=== PATIENT | female | born 1975 | race Caucasian/White ===

== ENCOUNTER 2016-04-08 18:21 | Emergency (ER) | payer MEDICARE ==
[2016-04-08 18:21] VITALS: BMI 35.9
[2016-04-08 19:20] VITALS: TEMP 98
[2016-04-08] MEDS ORDERED: ALBUTEROL 6.7 GM MDI INH ONE (20:12)
--- NOTE | 2016-04-08 20:15 | EDPRACDOC ---
- General Information Chief Complaint: Flu-Like Symptoms Stated Complaint: SORE THROAT; COUGH Time Seen by Provider: 04/08/16 20:12 Information Source: Patient Mode Of Arrival: Car Home Medications: Home Medications Vits W-Ca,Fe,FA(<1Mg) [] 1 tab PO DAILY 03/31/13 Levothyroxine Sodium [Synthroid] 50 mcg PO DAILY 11/09/13 Glycopyrrolate [Robinul Forte] 2 mg PO .2 TO 3 TIMES DAILY 12/28/13 Cephalexin Monohydrate [Keflex] 500 mg PO Q8H #30 cap 01/05/14 Ibuprofen Tablet [Motrin] 800 mg PO Q6 PRN #30 tablet 01/05/14 Oxycodone Immediate Release [Oxy-Ir] 5 mg PO Q4H PRN #20 tab 01/05/14 Probiotic Blend [Rayne Q] 1 tab PO BIDLS #60 tablet 01/05/14 Trazodone HCl [Desyrel] 100 mg PO HS #30 tablet 01/05/14 Pantoprazole Sodium [Protonix] 40 mg PO DAILY #30 tab 04/08/16 Prednisone [Sterapred DS 10 mg/12 day pack] 48 tab PO DIR #1 pack 04/08/16 Promethazine Dextromethorphan [Phenergan DM] 5 ml PO Q4H PRN #120 ml 04/08/16 Allergies/Adverse Reactions: Allergies Allergy/AdvReac Type Severity Reaction Status Date / Time No Known Allergies Allergy Verified 12/28/13 19:03 - History of Present Illness Symptoms Started: 03/13/2016 HPI: PT C/O COUGH CONGESTION SOB WORSE WHEN LAYING DOWN AT NIGHT. SHE C/O SORETHROAT STATES HER SYMPTOMS HAVE BEEN GOING ON FOR APPROX 1 MONTH AND HAS BEEN ON AUGMENTIN AND AVELOX AND 1 ROUND OF PREDNISONE AND STATES HER SYMPTOMS WOULD GET LITTLE BETTER FOR 1-2 DAYS BUT THEN WOULD COME BACK. Symptoms: Reports: Cough, Nasal Symptoms, Sore Throat Recent Medications: Reports: Antibiotics, Steroids Relevant History Of: Reports: None Shortness of Breath: Mild Cough Frequency: Intermittent Cough Description: Reports: Productive, Congested (GREEN SPUTUM) Ear Symptoms: Reports: None Associated Signs and Symptoms: Reports: Cough, Nasal Symptoms, Sore Throat, Other (LOSS OF VOICE INTERMITTENTLY) ED Past Medical History - History Reviewed Yes Nurses notes reviewed and agree except as marked Travel Outside of [place] in the Last 3 Months?: No - Patient Medical History GI/ History: Reports: Urinary Tract Infection Musculoskeletal History: Denies: Other Psychological History: Denies: Depression, Substance Use Disorder Systemic History: Reports: Anemia, Hypothyroidism Surgical History: Reports: Other (multiple orth surgeries) - Family Medical History Reports: Cancer (Mother - ovarian, maternal Grandmother - breast) - Social Medical History Smoking Status: Never smoker Social History: Denies: Substance Use Disorder ETOH: None Substance Abuse: None Lives With: Spouse Lives In: Home EDM Review of Systems - Review of Systems ROS Negative Except as Marked: Yes All systems reviewed and were negative except as marked Constitutional: Fatigue. negative: Chills, Fever, Loss of Appetite, Weakness Eyes: No Symptoms Reported. negative: Redness, Blurred Vision, Double Vision, Discharge, Pain, Light Sensitive, Photophobia Ears: No Symptoms Reported. negative: Pain, Hearing Loss, Drainage, Ear Pulling Throat: Pain. negative: Swelling Nose: Congestion. negative: Abrasion, Bleeding, Discharge, Deformity, Ecchymosis, Injection, Laceration, Swelling, Tender Mouth: No Symptoms Reported. negative: Pain, Drooling Respiratory: Cough, Shortness of Breath. negative: Barky Cough, Brassy Cough, Hemoptysis, Wheezing Cardiovascular: No Symptoms Reported. negative: Chest Pain, Palpitations, Syncope, Edema, Orthopnea, PND, Skin Mottling, Cyanosis Gastrointestinal: No Symptoms Reported. negative: Pain, Constipation, Nausea, Vomiting, Diarrhea, Melena, Formula Intolerance Genitourinary: No Symptoms Reported. negative: Dysuria, Hematuria, Frequency, Discharge, Bleeding, Testicular Pain, Neurological: No Symptoms Reported. negative: Headache, Dizziness, Seizure, Numbness, Weakness, Speech Difficulty, Gait Difficulty Musculoskeletal: No Symptoms Reported. negative: Neck, Chestwall, Ribs, Back, Shoulder, Arm, Elbow, Forearm, Wrist, Hand, Pelvis, Hip, Femur, Knee, Leg, Ankle , Foot Integumentary: No Symptoms Reported. negative: Itching, Rash, Bruising, Wound Allergic/Immunologic: No Symptoms Reported. negative: Hives, Itching Hematologic: No Symptoms Reported. negative: Lymphadenopathy, Easy Bruising, Easy Bleeding Endocrine: No Symptoms Reported. negative: Weight Gain, Weight Loss Psychiatric: No Symptoms Reported. negative: Anxiety, Depression, Hallucinations, Insomnia, Suicidal - Physical Exam Constitutional: No apparent distress, Alert (Awake) Oriented to: Time, Person, Place Last recorded Vital Signs: Last Vital Signs Temp 98 F 04/08/16 19:19 Pulse 126 H 04/08/16 19:19 Resp 20 04/08/16 19:19 BP 174/104 H 04/08/16 19:19 Pulse Ox 97 04/08/16 19:19 Oxygen Pulse Oxygen Saturation 97 O2 Device Room Air Oxygen Flow Rate Fraction of Inspired Oxygen ( FIO2) - HEENT Head: Normal ( normocephalic) Eye Exam: Normal (PERRL, EOMI, Sclera white) Oropharynx: Red (MILD), Other (HOARSENESS) Tympanic Membrane: Normal ENT EAC: Normal TMJ: Normal Nose: Congestion, Swelling (REDNESS OF TURBINATES) Neck: Normal (FROM, trachea at midline) - Respiratory/Cardiovascular Respiratory: Other (COARSE BREATH SOUNDS) Cardiovascular: Normal (RRR without murmur, gallop or rub) - GI Auscultation: Normal (NABS) Palpation: Normal (Soft,No rebound or guarding, non distended) Tenderness: Non tender Stover's Sign: Negative - Musculoskeletal Back: Normal (Non-Tender) Extremities: Normal (Normal tone, Pulses 2+ No cyanosis or edema, FROM) - Integumentary Skin: Normal, Warm, Dry Lymphatics: Normal (no adenopathy) - Neurologic Memory Impaired: Normal Motor Function: Normal (Normal tone, Pulses 2+ No cyanosis or edema, FROM) Cranial Nerve: Normal (CN II-X11 intact sensation, strength 5/5) Cerebellar: Normal Mood Description: Normal Perception: Normal - Differential Diagnosis Bronchitis, Pneumonia, Viral, Other (LARYNGITIS) - Diagnostic Imaging CXR Image interpreted by: Radiologist IMPRESSION: Stable from prior. No evidence of acute cardiopulmonary disease. Decision Time to Discharge: 21:43 - Departure Disposition: Home Condition: Stable Final Diagnosis: Laryngitis Rhinitis Qualifiers: Rhinitis type: unspecified Qualified Code(s): J31.0 - Chronic rhinitis Instructions: Laryngitis (ED) Education/Counseling Given To: Patient Education/Counseling Given Regarding: Diagnosis, Treatment, Prognosis, Follow Up Referrals: Lauren Queen MD [Primary Care Provider] - One Week Lisandro Redding MD [Staff Physician] - One Week Prescriptions: Pantoprazole Sodium [Protonix] 40 mg PO DAILY #30 tab Prednisone [Sterapred DS 10 mg/12 day pack] 48 tab PO DIR #1 pack Promethazine Dextromethorphan [Phenergan DM] 5 ml PO Q4H PRN #120 ml PRN Reason: Cough
--- NOTE | 2016-04-08 20:29 | DIRPT ---
CLINICAL DATA: Cough and congestion. Shortness of breath EXAM: CHEST 2 VIEW COMPARISON: 07/09/2011 FINDINGS: Normal heart size and mediastinal contours. Stable appearance of prominent right infrahilar lung markings without lateral imaging correlate. There is no edema, consolidation, effusion, or pneumothorax. Incidental fused anterior right first and second ribs. IMPRESSION: Stable from prior. No evidence of acute cardiopulmonary disease. Electronically Signed By: River Valdovinos M.D. On: 04/08/2016 20:25
[2016-04-08 21:50] VITALS: BP 145/92; PULSE 99
== END 2016-04-08 21:54 | disposition home or self-care (01) ==
LOC: EDMC 18:21
DX: J04.0 Acute laryngitis (principal); J31.0 Chronic rhinitis; R05 Cough
CPT/HCPCS: 71020; 94640; 99282; A9270; J3490